=== PATIENT | female | born 1985 | race Caucasian/White ===

== ENCOUNTER 2017-01-19 17:47 | Emergency (ER) | payer MEDICARE, MEDICAID ==
--- NOTE | 2017-01-19 20:06 | RAD ---
THREE VIEWS OF RIGHT HAND 01/19/17 COMPARISON: None. HISTORY: Smashed fingers putting a table together, crush injury to the third and fourth distal phalanges. FINDINGS: Three view examination of the right hand demonstrates no fracture or evidence of dislocation. IMPRESSION: No acute osseous abnormality seen. POS: ABILIO
== END 2017-01-19 18:21 | disposition home or self-care (01) ==
LOC: SCSER 17:47
DX: S60.041A Contusion of right ring finger without damage to nail, initial encounter (principal); K21.9 Gastro-esophageal reflux disease without esophagitis; E78.5 Hyperlipidemia, unspecified; I10 Essential (primary) hypertension; G43.909 Migraine, unspecified, not intractable, without status migrainosus; Z79.899 Other long term (current) drug therapy; W23.0XXA Caught, crushed, jammed, or pinched between moving objects, initial encounter

== ENCOUNTER 2019-05-02 13:08 | Outpatient (CLI) | payer MEDICARE, MEDICAID ==
--- NOTE | 2019-05-02 13:54 | CT ---
CT Stone Protocol 05/02/2019 12:00 AM HISTORY: Low back pain for 2 weeks. History of renal stones. COMPARISON: None. Technique: Multiple contiguous axial CT images are obtained through the abdomen and pelvis without IV contrast. Coronal reformats are provided. FINDINGS: This examination is limited for the evaluation of solid organs and vascular structures due to the lac k of intravenous contrast. Lower Chest: Partial visualization of bilateral breast prostheses. Visualized lung bases are clear wi th minimal dependent atelectasis. Abdomen: Liver: Grossly normal non-enhanced CT appearance. Gallbladder: Within normal limits for CT imaging. Pancreas: Grossly normal nonenhanced CT appearance. Spleen: Grossly normal nonenhanced CT appearance. Adrenals: Grossly normal nonenhanced CT appearance. Kidneys: No renal calculi are visualized, and there is no evidence of hydronephrosis. Ureters: No ureteral calculus is seen.. Pelvis: Urinary bladder: Incompletely distended but otherwise grossly within normal limits. Reproductive Organs: No pelvic masses. Lymph Nodes: No enlarged lymph nodes. Bowel: Loops of small bowel are normal in caliber. The appendix is not visualized. There is suture ma terial seen at the cecal apex which may be related to prior appendectomy. There are no secondary signs to suggest appendicitis. There are several rounded increased density structures within the asce nding and transverse colon as well as in the stomach likely due to ingested material and possibly medication. Peritoneum: No free fluid, free air, or fluid collection. Retroperitoneum: within normal limits. Vessels: Abdominal aorta is normal in caliber.. Abdominal Wall: There is a 1.9 cm hypodense lesions seen in the subcutaneous soft tissues just below the skin surface in the superior right gluteal region which is nonspecific. This could potentially represent a sebaceous cyst. Bones: No suspicious lytic or sclerotic osseous lesions are identified. IMPRESSION: 1. No renal or ureteral calculi are seen bilaterally. 2. Oval-shaped increased density structures within the stomach and ascending as well as transverse co ro likely related to ingested material and possibly medication. 3. Hypodense cystic appearing structure subcutaneous soft tissues just below the skin surface in the superior right gluteal region which is nonspecific but may possibly represent a sebaceous cyst.
== END 2019-05-02 13:09 | disposition home or self-care (01) ==
LOC: BICCT 13:08
PROVIDERS: ATTEND Family Medicine
DX: N20.0 Calculus of kidney (principal); K63.89 Other specified diseases of intestine; K31.89 Other diseases of stomach and duodenum
CPT/HCPCS: 74176

== ENCOUNTER 2021-11-11 10:06 | Outpatient (CLI) | payer OTHER | END 2021-11-11 10:07 | disposition home or self-care (01) | LOC: BICMRI 10:06 | PROVIDERS: ATTEND Nurse Practitioner Family | DX: M47.26 Other spondylosis with radiculopathy, lumbar region (principal); M51.16 Intervertebral disc disorders with radiculopathy, lumbar region | CPT/HCPCS: 72148 ==

== ENCOUNTER 2022-12-04 11:10 | Outpatient (CLI) | payer OTHER, MEDICAID | END 2022-12-04 11:11 | disposition home or self-care (01) | LOC: BICMRI 11:10 | PROVIDERS: ATTEND Nurse Practitioner Family | DX: M50.11 Cervical disc disorder with radiculopathy, high cervical region (principal); M48.02 Spinal stenosis, cervical region | CPT/HCPCS: 72141 ==

== ENCOUNTER 2023-11-19 15:42 | Outpatient (CLI) | payer OTHER, MEDICAID | END 2023-11-19 15:43 | disposition home or self-care (01) | LOC: BICRAD 15:42 | PROVIDERS: ATTEND Family Medicine | DX: M54.50 Low back pain, unspecified (principal); M47.816 Spondylosis without myelopathy or radiculopathy, lumbar region; Q76.49 Other congenital malformations of spine, not associated with scoliosis | CPT/HCPCS: 72100; 72220 ==